=== PATIENT | male | born 1955 | race Caucasian/White ===

== ENCOUNTER 2019-05-26 11:32 | Emergency (ER) | payer MEDICAID ==
[~2019-05-26] VITALS: Ht 175.3 cm; Wt 96.2 kg
[2019-05-26 11:40] VITALS: Ht 175.3 cm; Wt 96.2 kg
[2019-05-26 14:04] VITALS: BP 151/83
== END 2019-05-26 13:58 | disposition home or self-care (01) ==
LOC: ED 11:32
DX: S46.911A Strain of unspecified muscle, fascia and tendon at shoulder and upper arm level, right arm, initial encounter (principal); W18.09XA Striking against other object with subsequent fall, initial encounter; Y93.39 Activity, other involving climbing, rappelling and jumping off; Y92.89 Other specified places as the place of occurrence of the external cause; Y99.8 Other external cause status
CPT/HCPCS: J1885; Q0092